=== PATIENT | female | born 1990 | race Two or more races ===

== ENCOUNTER 2024-07-28 11:42 | Emergency (ER) | payer MEDICAID, OTHER ==
[~2024-07-28] VITALS: Ht 162.6 cm; Wt 79.5 kg
[2024-07-28 12:27] VITALS: BP 125/67; PULSE 90; RESP 16; TEMP 97.9; O2SAT 99
--- NOTE | 2024-07-28 12:44 | ED.PDOC ---
Back pain HPI HPI Comments 33 year old presents for back pain Onset started 2 days ago while making her bed and heard a pop Pain rated as severe with ambulation Taking IBU 600 mg Denies back surgeries or red flags LMP: Jul 15 Chief Complaint: Back Pain Time Seen by MD: 12:22 Primary Care Provider: unknown Reviewed Notes: Nurses Notes, Medications, Allergies Allergies: Coded Allergies: NO KNOWN ALLERGIES (Unverified , 07/28/24) Home Meds Active Scripts Lidocaine (LIDODERM 5% TOPICAL PATCH) 1 Patch Ph, 1 PATCH TOP DAILY for 30 Days, #30 PATCH 0 Refills Prov:KALEB GARCIA DOCTOR'S ASSISTANT 07/28/24 Ibuprofen (Ibuprofen) 600 Mg Tab, 1 TAB PO TID for 10 Days, #30 TAB 0 Refills Prov:KALEB GARCIA DOCTOR'S ASSISTANT 07/28/24 Methocarbamol (Methocarbamol) 500 Mg Tab, 500 MG PO Q8HP PRN for 10 Days, #30 TAB 0 Refills Prov:KALEB GARCIA DOCTOR'S ASSISTANT 07/28/24 Nitrofurantoin Monohydrate Mac (Macrobid) 100 Mg Cap, 100 MG PO BID for 7 Days, #14 CAP 0 Refills Prov:JOSEKALEB F DOCTOR'S ASSISTANT 07/28/24 Information Source: Patient Mode of Arrival: Wheelchair All Other Systems: Reviewed and Negative (per hpi) Physical Exam General Appearance: No Apparent Distress, Normal HEENT: Normal ENT Inspection, Pharynx Normal, TMs Normal Neck: Full Range of Motion, Non-Tender, Normal, Normal Inspection Respiratory: Chest Non-Tender, Lungs Clear, No Accessory Muscle Use, No Respiratory Distress, Normal Breath Sounds Cardiovascular: No Edema, No JVD, No Murmur, No Gallop, Normal Peripheral Pulses, Regular Rate/Rhythm Breast Exam: Deferred Gastrointestinal: No Organomegaly, Non Tender, No Pulsatile Mass, Normal Bowel Sounds, Soft Genitalia: Deferred Pelvic: Deferred Rectal: Deferred Extremities: No calf tenderness, Normal capillary refill, Normal inspection, Normal range of motion, Non-tender, No pedal edema Musculoskeletal : Apperance: Normal Neurologic: Alert, 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 Was a procedure done?: No Images 1 - Localized TTP. Straight leg raise test +. No mid line tenderness. Full ROM 2 - Back Pain Differential Dx Differential Diagnosis: Musculoskeletal Pain X-Ray, Labs, Meds, VS Vital Signs Date Time Temp Pulse Resp B/P (MAP) Pulse Ox O2 Delivery O2 Flow Rate FiO2 07/28/24 12:27 97.9 90 16 125/67 (86) 99 97.9 07/28/24 12:27 90 16 99 Room Air 07/28/24 12:10 97.9 90 16 125/67 (86) 99 Lab Test 07/28/24 12:47 Range/Units Urine Color Light-yellow Yellow Urine Clarity Clear Clear Urine pH 7.0 5.0-9.0 Urine Specific [place] 1.008 1.001-1.035 Urine Protein Negative Negative Urine Ketones Negative Negative Urine Blood Negative Negative /uL Urine Nitrite Negative Negative Urine Bilirubin Negative Negative Urine Urobilinogen Normal Negative mg/dL Urine Leukocyte Esterase 2+ Negative /uL Urine RBC 2 0 - 4 /hpf Urine Microscopic WBC 27 H 0-5 /HPF Urine Squamous Epithelial Cells Few <5 /hpf Urine Bacteria Few H None Seen /hpf Urine Glucose Normal Normal mg/dL Current Medications Medications (Trade) Dose Ordered Sig/Vimal Route Start Time Stop Time Status Last Admin Acetaminophen/ Hydrocodone Bitart ([place] 5/325MG Tab) 1 tab ONCE ONCE PO 07/28/24 12:45 07/28/24 12:47 DC 07/28/24 12:52 Ketorolac Tromethamine (Toradol Injection) 30 mg ONCE ONCE IM 07/28/24 12:45 07/28/24 12:47 DC 07/28/24 12:52 Methylprednisolone Sodium Succinate (Solu Medrol) 125 mg ONCE ONCE IM 07/28/24 12:45 07/28/24 12:47 DC 07/28/24 12:51 Ceftriaxone Sodium (Rocephin) 1,000 mg ONCE ONCE IM 07/28/24 13:45 07/28/24 13:47 DC 07/28/24 13:50 X-Ray, Labs, Meds, VS Comment Signs and symptoms suggest mechanical back pain. The episode appears to be exacerbated by movements. The patient's motor strength and DTR's are currently intact. There are no signs or symptoms of cauda equina or cord compression at this time. Differential diagnoses include muscle strain versus arthralgia versus radicular/disk disease. The differential for an acute vascular, neurologic, malignant, or infectious etiologies is much less likely given her presentation. Patient able to ambulate. The patient will follow up with PMD to see if their symptoms anjum. The patient was counseled in regards to the diagnosis and management of their condition and verbalized understanding of this. The patient understands to go to the ED or seek immediate medical attention if the symptoms worsen or return. History and lab findings also consistent with UTI Vital signs stable patient stable Patient tolerating p.o. fluids Encouraged parents to increase water intake Practice good personal hygiene. Always wipe from front to back Drink plenty of fluids to help flush bacteria out of the urinary tract Empty bladder completely as soon as you feel the urge Empty bladder after intercourse Prescribed p.o. antibiotics for presentation of symptoms Complete course of antibiotic therapy even if symptoms improve or resolve. There should be no leftover antibiotics as this can lead to antibiotic resistant bacteria and even worse infection. Parents verbalized understanding. Potential side effects discussed with patient including abdominal pain, nausea, diarrhea. Recommended probiotics and return precautions given Persistent diarrhea Dehydration Blood in stool Ill-appearing On reevaluation, patient had symptomatic improvement. Patient is stable for discharge at this time. External notes reviewed. Test results and diagnostic imaging interpreted. All diagnostic findings, discharge care, education and instructions provided Follow-up with PCP in 2 to 3 days Patient verbalized understanding and agreed to treatment plan Vital signs stable, afebrile, no acute distress noted Patient ambulatory with strong steady gait Advised to return precautions for any new or worsening symptoms, return to ER immediately for re-evaluation Patient is aware that the purpose of this visit was for an acute medical emergency requiring emergent stabilization. Chronic conditions, including malignancies have not been ruled out. Patient is instructed to follow up with PCP as directed and discharge instructions for continued care and workup. If unable to arrange follow-up, patient is to return to the emergency department for reassessment. Patient (parent or legal guardian if applicable) was given verbal and written discharge instructions and acknowledges understanding. Time of 1ST Reevaluation: 13:30 Reevaluation 1ST: Improved Patient Education/Counseling: Diagnosis, Treatment Family Education/Counseling: Diagnosis, Treatment Departure 1 Departure Time of Disposition: 13:52 Impression: Primary Impression: Lumbar radiculopathy Additional Impression: UTI (urinary tract infection) Qualified Codes: N30.00 - Acute cystitis without hematuria Disposition: HOME / SELF CARE / HOMELESS Condition: Stable e-Prescriptions Lidocaine (LIDODERM 5% TOPICAL PATCH) 1 Patch Ph 1 PATCH TOP DAILY for 30 Days, #30 PATCH 0 Refills Prov: KALEB GARCIA NP 07/28/24 Ibuprofen (Ibuprofen) 600 Mg Tab 1 TAB PO TID for 10 Days, #30 TAB 0 Refills Prov: KALEB GARCIA NP 07/28/24 Methocarbamol (Methocarbamol) 500 Mg Tab 500 MG PO Q8HP PRN for 10 Days, #30 TAB 0 Refills Prov: KALEB GARCIA NP 07/28/24 Nitrofurantoin Monohydrate Mac (Macrobid) 100 Mg Cap 100 MG PO BID for 7 Days, #14 CAP 0 Refills Prov: KALEB GARCIA NP 07/28/24 Critical Care Note Critical Care Time?: No Stability Stability form required: No Heart Score Heart Score: Heart Score Response (Comments) Value History N/A 0 EKG N/A 0 Age N/A 0 Risk Factors N/A 0 Troponin N/A 0 Total 0 KALEB GARCIA NP Jul 28, 2024 12:44
[2024-07-28] MEDS: methylPREDNISolone SOD SUCC 125 MG/2 ML VL IM ONE (12:51)
[2024-07-28] MEDS: KETOROLAC TROMETH 30 MG/ML 1ML VIAL IM ONE (12:52)
[2024-07-28] MEDS: HYDROcodone-ACET 5/325MG TAB PO ONE (12:52)
[2024-07-28 13:43] LABS: Urine Bacteria FEW /hpf (None Seen); Urine Blood Negative /uL (Negative); Urine Clarity Clear (Clear); Urine Color Light-Yellow (Yellow); Urine Protein, UAD Negative (Negative); Urine Specific Gravity 1.008 (1.001-1.035); Urine Squamous Epithelial Cell FEW /hpf (<5); Urine Urobilinogen Normal (Negative); Urine WBC 27 /HPF (0-5)
[2024-07-28] MEDS: cefTRIAXone SOD 1,000 MG VL IM ONE (13:50)
[2024-07-28] MEDS ORDERED: NITR-87 PO (13:54)
[2024-07-28] MEDS ORDERED: LIDO5DIS21 TOP (13:54)
[2024-07-28] MEDS ORDERED: IBUP-1454 PO (13:54)
[2024-07-28] MEDS ORDERED: METH-1181 PO (13:54)
== END 2024-07-28 13:58 | disposition home or self-care (01) ==
LOC: ER 11:42
DX: M54.16 Radiculopathy, lumbar region (principal); N39.0 Urinary tract infection, site not specified; Z79.1 Long term (current) use of non-steroidal anti-inflammatories (NSAID); Z79.899 Other long term (current) drug therapy
CPT/HCPCS: 81001; 96372; 99284; J0696; J1885; J2919

== ENCOUNTER → 2024-09-10 | Outpatient (CLI) | payer MEDICAID ==
[~2024-09-10] MED LIST: IBUP-1454 PO; LIDO5DIS21 TOP; METH-1181 PO; NITR-87 PO
[2024-09-10 09:45] LABS: Urine Bacteria None Seen /hpf (None Seen)
[2024-09-10 09:51] LABS: Basophils # (auto) 0 10 ^3/uL (0-0.2); Basophils % (auto) 0.4 % (0.0-2.0); Eosinophils # (auto) 0.1 10 ^3/uL (0-0.8); Eosinophils % (auto) 1.7 % (0.0-7.0); Hematocrit 39.8 % (36.0-46.0); Lymphocytes # (auto) 1.5 10 ^3/uL (0.4-5.4); Lymphocytes % (auto) 28.8 % (10.0-50.0); Mean Corpuscular Hgb Conc. 32.6 g/dL (32.0-36.0); Mean Corpuscular Volume 79.7 fL (80.0-100.0); Monocytes # (auto) 0.4 10 ^3/uL (0-1.3); Monocytes % (auto) 7.2 % (0.0-12.0); Neutrophils # (auto) 3.2 10 ^3/uL (1.6-8.6); Neutrophils % (auto) 61.9 % (37.0-80.0); Nucleated Red Blood Cells % 0.1 %; Platelet Count (auto) 269 10^3/uL (140-450); Red Blood Cells 4.99 10^6/uL (4.0-5.20); Red Cell Distribution Width 14.9 % (11.8-14.3); White Blood Cell 5.1 10^3/uL (4.4-10.8)
[2024-09-10 09:57] LABS: Urine Blood Negative /uL (Negative); Urine Clarity Turbid (Clear); Urine Color Yellow (Yellow); Urine Mucus FEW (None Seen); Urine Protein, UAD Negative (Negative); Urine Specific Gravity 1.025 (1.001-1.035); Urine Squamous Epithelial Cell FEW /hpf (<5); Urine Urobilinogen Normal (Negative); Urine WBC < 1 /HPF (0-5); Urine pH 5.5 (5.0-9.0)
[2024-09-10 10:25] LABS: Alanine Aminotransferase 20 U/L (7-40); Alkaline Phosphatase 65 U/L (46-116); Anion Gap 8 (5-15); Aspartate Aminotransferase 14 U/L (13-40); BUN/Creatinine Ratio 19.4 (10.0-20.0); Blood Urea Nitrogen 13 mg/dL (9-23); Calcium 10.1 mg/dL (8.7-10.4); Carbon Dioxide 27 mmol/L (20-31); Chloride 103 mmol/L (98-107); Cholesterol 184 mg/dL (< 200); Glucose 99 mg/dL (74-106); HDL Cholesterol 53 mg/dL (40-59); Potassium 4.7 mmol/L (3.5-5.1); Sodium 138 mmol/L (136-145); Total Protein 7.6 g/dL (5.7-8.2); Triglycerides 67 mg/dL (< 150)
[2024-09-10 10:28] LABS: Albumin 5.1 g/dL (3.2-4.8); LDL Cholesterol 121 mg/dL (< 100)
== END | disposition home or self-care (01) ==
LOC: LAB 09:31
PROVIDERS: ATTEND Internal Medicine
DX: Z00.00 Encounter for general adult medical examination without abnormal findings (principal); Z79.899 Other long term (current) drug therapy
CPT/HCPCS: 36415; 80053; 80061; 81001; 82306; 82607; 83036; 84443; 85025

== ENCOUNTER 2024-11-20 10:58 | Outpatient (CLI) | payer MEDICAID | END 2024-11-20 17:00 | disposition home or self-care (01) | LOC: LAB 10:58 | PROVIDERS: ATTEND Internal Medicine | DX: Z00.00 Encounter for general adult medical examination without abnormal findings (principal) | CPT/HCPCS: 36415; 84439; 84443; 86780 ==

== ENCOUNTER 2025-05-03 04:28 | Inpatient (IN) | payer MEDICAID ==
[~2025-05-03] VITALS: Ht 162.6 cm; Wt 87.5 kg
--- NOTE | 2025-05-03 05:21 | ED.PDOC ---
GI ASSESSMENT HPI Comments 34-year-old female who came to ER for abdominal pain. Patient states for the past 4 hours she has been experiencing epigastric abdominal pain, radiating to the back. Patient states she had similar pain before. States pain usually occurs after meals. Patient denies any possibility of . Chief Complaint: Abdominal Pain Time Seen by MD: 05:21 Primary Care Provider: unknown Reviewed Notes: Nurses Notes Allergies: Coded Allergies: NO KNOWN ALLERGIES (Unverified , 07/28/24) Home Meds Active Scripts Lidocaine (LIDODERM 5% TOPICAL PATCH) 1 Patch Ph, 1 PATCH TOP DAILY for 30 Days, #30 PATCH 0 Refills Prov:JOSEKALEB F INVESTMENT ADVISOR 07/28/24 Ibuprofen (Ibuprofen) 600 Mg Tab, 1 TAB PO TID for 10 Days, #30 TAB 0 Refills Prov:KALEB GARCIA INVESTMENT ADVISOR 07/28/24 Methocarbamol (Methocarbamol) 500 Mg Tab, 500 MG PO Q8HP PRN for 10 Days, #30 TAB 0 Refills Prov:KALEB GARCIA INVESTMENT ADVISOR 07/28/24 Nitrofurantoin Monohydrate Mac (Macrobid) 100 Mg Cap, 100 MG PO BID for 7 Days, #14 CAP 0 Refills Prov:CHINO GARCIAJerman Avalos INVESTMENT ADVISOR 07/28/24 Information Source: Patient Mode of Arrival: Ambulatory Past Medical History PAST MEDICAL HISTORY: Denies Surgical History: , Tubal Ligation DEEP SEA DIVER History: Denies all DEEP SEA DIVER Hx Family History Family History: Reviewed,noncontributory to illness Social History Smoker: Non-Smoker Alcohol: Denies ETOH Use Drugs: Denies Drug Use Lives In: Home Constitutional: denies: chills, diaphoresis, fatigue, fever, malaise, sweats, weakness, others EENTM: denies: blurred vision, double vision, ear bleeding, ear discharge, ear drainage, ear pain, ear ringing, eye pain, eye redness, hearing loss, mouth pain, mouth swelling, nasal discharge, nose bleeding, nose congestion, nose pain, photophobia, tearing, throat pain, throat swelling, voice changes, others Respiratory: denies: cough, hemoptysis, orthopnea, SOB at rest, shortness of breath, SOB with excertion, stridor, wheezing, others Cardiovascular: denies: chest pain, dizzy spells, diaphoresis, Dyspnea on exertion, edema, irregular heart beat, left arm pain, lightheadedness, palpitations, PND, syncope, others Gastrointestinal: reports: abdominal pain; denies: abdomen distended, blood streaked bowels, constipated, diarrhea, dysphagia, difficulty swallowing, hematemesis, melena, nausea, poor appetite, poor fluid intake, rectal bleeding, rectal pain, vomiting, others Genitourinary: denies: abnormal vagina bleeding, burning, dyspareunia, dysuria, flank pain, frequency, hematuria, incontinence, pain, , vagina discharge, urgency, others Neurological: denies: dizziness, fainting, headache, left sided numbness, left sided weakness, numbness, paresthesia, pre-existing deficit, right sided numbness, right sided weakness, seizure, speech problems, tingling, tremors, weakness, others Musculoskeletal: reports: back pain; denies: gout, joint pain, joint swelling, muscle pain, muscle stiffness, neck pain, others Integumetry: denies: bruises, change in color, change in hair/nails, dryness, laceration, lesions, lumps, rash, wounds, others Allergic/Immunocompromised: denies: Difficulty Healing, Frequent Infections, Hives, Itching, others Hematologic/Lymphatic: denies: anemia, blood clots, easy bleeding, easy bruising, swollen glands, others Endocrine: denies: excessive hunger, excessive sweating, excessive thirst, excessive urination, flushing, intolerance to cold, intolerance to heat, unexplained weight gain, unexplained weight loss, others Psychiatric: denies: anxiety, bipolar disorder, depression, hopeless, panic disorder, schizophrenia, sleepless, suicidal, others Physical Exam General Appearance: No Apparent Distress, Normal HEENT: Normal ENT Inspection, Pharynx Normal, TMs Normal Neck: Full Range of Motion, Non-Tender, Normal, Normal Inspection Respiratory: Chest Non-Tender, Lungs Clear, No Accessory Muscle Use, No Respiratory Distress, Normal Breath Sounds Cardiovascular: No Edema, No JVD, No Murmur, No Gallop, Normal Peripheral Pulses, Regular Rate/Rhythm Breast Exam: Deferred Gastrointestinal: No Organomegaly, No Pulsatile Mass, Normal Bowel Sounds, RUQ, Soft, Tenderness Genitalia: Deferred Pelvic: Deferred Rectal: Deferred Extremities: No calf tenderness, Normal capillary refill, Normal inspection, Normal range of motion, Non-tender, No pedal edema Musculoskeletal : Apperance: Normal Neurologic: Alert, 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 Was a procedure done?: No GI differential Dx Differential Diagnosis: Cholecystitis, Constipation, Diverticular disease, Gastritis/PUD, Gastroenteritis, Pancreatitis, UTI, X-Ray, Labs, Meds, VS Vital Signs Date Time Temp Pulse Resp B/P (MAP) Pulse Ox O2 Delivery O2 Flow Rate FiO2 05/03/25 04:38 98.2 93 18 135/89 98 98.2 Time of 1ST Reevaluation: 05:19 Reevaluation 1ST: Unchanged Patient Education/Counseling: Diagnosis, Treatment, Prognosis, Need For Follow Up Family Education/Counseling: No Family Present Comments i will sign out to Dr Smith at shift change in 25 mins SEPSIS Sepsis Screen Date sepsis recognized/suspect: May 03, 2025 Time Sepsis recognized/suspect: 044 Recent Procedure: No On Antibiotic Therapy: No Respiratory Rate >20: No Heart Rate >90: Yes Temp<36 C (96.8 F) or >38.3 C: No SBP <90 or MAP <65 mmHG: No New Acute Mental Status Change: No Is the patient on CPAP, BIPAP,: No Physician Orders Complete Blood Count (05/03/25 05:20) Basic Metabolic Panel (05/03/25 05:20) Hepatic Panel (05/03/25 05:20) Lipase (05/03/25 05:20) Beta Hcg, Quantitative (05/03/25 05:20) Urinalysis (05/03/25 05:20) Gallbladder (05/03/25 05:20) Vital Signs Date Time Temp Pulse Resp B/P (MAP) Pulse Ox O2 Delivery O2 Flow Rate FiO2 05/03/25 04:38 98.2 93 18 135/89 98 98.2 Departure 1 Departure Time of Disposition: 05:35 Impression: Primary Impression: Biliary colic Disposition: 30 STILL A PATIENT Condition: Stable Critical Care Note Critical Care Time?: No Stability Stability form required: No Heart Score Heart Score: Heart Score Response (Comments) Value History N/A 0 EKG N/A 0 Age N/A 0 Risk Factors N/A 0 Troponin N/A 0 Total 0 I personally scribed for GIGI MARR MD ([email or web address]) on 05/03/25 at 05:21. Electronically submitted by Nicholas Bowling ([email or web address]). GIGI MARR MD May 03, 2025 05:21
[2025-05-03] MEDS: HYDROcodone-ACET 5/325MG TAB PO ONE ×2 (05:54→11:14)
[2025-05-03 06:25] LABS: Mean Corpuscular Volume 79.8 fL (80.0-100.0); Nucleated Red Blood Cells % 0.1 %
[2025-05-03 06:26] LABS: Urine Protein, UAD Negative (Negative)
[2025-05-03 06:28] LABS: Hematocrit 41.4 % (36.0-46.0); Hemoglobin 13.9 g/dL (12.2-16.2); Mean Corpuscular Hemoglobin 26.8 pg (28.0-32.0)
[2025-05-03 06:29] LABS: Alanine Aminotransferase 23 U/L (7-40); Alkaline Phosphatase 68 U/L (46-116); Anion Gap 8 (5-15); BUN/Creatinine Ratio 13.7 (10.0-20.0); Bilirubin, Total 0.4 mg/dL (0.2-1.0); Blood Urea Nitrogen 10 mg/dL (9-23); Calcium 10.0 mg/dL (8.7-10.4); Carbon Dioxide 27 mmol/L (20-31); Chloride 105 mmol/L (98-107); Potassium 4.7 mmol/L (3.5-5.1); Sodium 140 mmol/L (136-145); Total Protein 7.7 g/dL (5.7-8.2)
[2025-05-03 06:44] LABS: Albumin 4.9 g/dL (3.2-4.8); Bilirubin, Direct < 0.1 mg/dL (<0.3); Glucose 113 mg/dL (74-106)
[2025-05-03 06:58] LABS: Lipase 46 U/L (12-53)
[2025-05-03 08:43] VITALS: PULSE 60; RESP 18; O2SAT 100
--- NOTE | 2025-05-03 09:01 | DVH ---
EXAM: US GALLBLADDER INDICATION: gs TECHNIQUE: Multiple real-time sonographic images were obtained of the right upper quadrant. COMPARISON: None FINDINGS: The liver demonstrates increased echotexture without focal mass lesions. The liver measures 14.1 cm. There is hepatopedal color doppler flow in the main portal vein. There is no intrahepatic biliary ductal dilatation. There is a gallstone. The gallbladder wall measures 0.3 cm. Negative sonographic carter's sign. The common bile duct is dilated measuring 0.7 cm. No filling defect within the common bile duct. The right kidney measures 10.4 cm. The right kidney is normal in contour, size, and shape. The echogenicity is normal. There is no hydronephrosis. The pancreas is not well visualized due to overlying bowel gas. Visualized portions of the aorta and inferior vena cava are unremarkable. No evidence of ascites. IMPRESSION: 1. Cholelithiasis. No findings to suggest acute cholecystitis. 2. Dilated common bile duct measuring 0.7 cm. No filling defect. MRCP may be obtained for further evaluation. 3. Hepatic steatosis.
--- NOTE | 2025-05-03 09:13 | ED.PDOC ---
Departure 1 Departure Time of Disposition: 09:12 (Patient presented with abdominal pain that was concerning for possible appendicits, gastritis, cholecystitis, colitis, gastroenteritis, sbo, or orther possible surgical emergency. Data: 1. I ordered and reviewed the result of at least 3 labs including a CBC, BMP, and Urinalysis. 2. I independently interpreted the following tests: Ultrasound is concerning for cholelithiasis .Risk:This patient has a high risk of morbidity due to further diagnostic testing or treatment and may suffer from an acute abdominal process disorder. Workup reveals cholelithiasis and intractable abdominal pain and patient should be admitted for further workup. and possible expert consultation. ) Impression: Primary Impression: Biliary colic Disposition: ADMITTED INPATIENT Admit to: Med Surg Condition: Guarded ROD HUDDLESTON MD May 03, 2025 09:12
[2025-05-03] MEDS: ONDANSETRON HCL 4 MG/2 ML VIAL IV ONE (11:07)
[2025-05-03] MEDS ORDERED: ACETAMINOPHEN 325 MG TAB PO PRN (12:15)
[2025-05-03] MEDS ORDERED: MORPHINE SULFATE INJ 2 MG/ml SYRG IV PRN (12:15)
--- NOTE | 2025-05-03 13:08 | DVHHP2 ---
History of Present Illness History of Present Illness 33-year-old female with past medical history of recurrent UTIs and vitamin D deficiency presenting with epigastric and right upper quadrant abdominal pain, worse after meals, that acutely intensified around 2 a.m. today. She reports associated nausea but denies vomiting, fevers, chills, diarrhea, chest pain, or urinary complaints. She states she has been experiencing similar intermittent episodes for a while. In the ED, vital signs were stable. Labs including CBC, CMP, lipase, test, urinalysis, and toxicology screen were normal. RUQ ultrasound showed cholelithiasis, a CBD measuring 7 mm, and hepatic steatosis. MRCP was ordered to further evaluate for possible obstruction or choledocholithiasis. She was started on IV fluids and pain control. No antibiotics were initiated as there is no evidence of infection. Findings and plan were discussed with the patient. Past Medical History Recurrent UTIs, vitamin D deficiency. Past Surgical History , tubal ligation. Allergies NKDA. Home Medications Vitamin D supplement. Social History No tobacco, no alcohol, no recreational drugs. Lives at home. ROS Negative except as noted in HPI. Review of Systems Allergies: Coded Allergies: NO KNOWN ALLERGIES (Unverified , 07/28/24) Medications Current Medications Medications Dose Ordered Sig/Vimal Route Start Time Stop Time Status Last Admin Dose Admin Sodium Chloride 1,000 ml @ 60 mls/hr [id number] IV 05/03/25 12:15 Acetaminophen 650 mg Q6HP PRN PO 05/03/25 12:15 Acetaminophen/ Hydrocodone Bitart 1 tab Q4HP PRN PO 05/03/25 12:15 Morphine Sulfate 2 mg Q4HPRN PRN IV 05/03/25 12:15 Exam Vital Signs Vital Signs Date Time Temp Pulse Resp B/P (MAP) Pulse Ox O2 Delivery O2 Flow Rate FiO2 05/03/25 12:37 98.1 65 18 110/73 (85) 100 98.1 05/03/25 08:43 Room Air* 0 21 Exam General: Comfortable, no distress. HEENT: MMM. CV: RRR, no murmurs. Resp: CTAB, no wheezes or crackles. Abdomen: Soft, RUQ tenderness, William negative, no rebound or guarding. Extremities: No edema. Neuro: Alert, oriented, nonfocal. Labs/Xrays Labs Test 05/03/25 06:03 05/03/25 05:39 05/03/25 05:35 Range/Units Urine Color Colorless Yellow Urine Clarity Clear Clear Urine pH 5.5 5.0-9.0 Urine Specific [place] 1.009 1.001-1.035 Urine Protein Negative Negative Urine Ketones Negative Negative Urine Blood Negative Negative /uL Urine Nitrite Negative Negative Urine Bilirubin Negative Negative Urine Urobilinogen Normal Negative mg/dL Urine Leukocyte Esterase Negative Negative /uL Urine RBC 1 0 - 4 /hpf Urine Microscopic WBC 1 0-5 /HPF Urine Squamous Epithelial Cells Few <5 /hpf Urine Bacteria Mod H None Seen /hpf Urine Glucose Normal Normal mg/dL Sodium Level 140 136-145 mmol/L Potassium Level 4.7 3.5-5.1 mmol/L Chloride Level 105 98-107 mmol/L Carbon Dioxide Level 27 20-31 mmol/L Anion Gap 8 5-15 Blood Urea Nitrogen 10 9-23 mg/dL Creatinine 0.73 0.550-1.02 mg/dL Glomerular Filtration Rate Calc 111 >90 mL/min BUN/Creatinine Ratio 13.7 10.0-20.0 Serum Glucose 113 H 74-106 mg/dL Calcium Level 10.0 8.7-10.4 mg/dL Total Bilirubin 0.4 0.2-1.0 mg/dL Direct Bilirubin < 0.1 <0.3 mg/dL Aspartate Amino Transferase (AST) 16 13-40 U/L Alanine Aminotransferase (ALT) 23 7-40 U/L Alkaline Phosphatase 68 46-116 U/L Total Protein 7.7 5.7-8.2 g/dL Albumin 4.9 H 3.2-4.8 g/dL Lipase 46 12-53 U/L Beta HCG, Quantitative 0.9 L 1.5-4.2 mIU/mL White Blood Count 7.6 4.4-10.8 10^3/uL Red Blood Count 5.19 4.0-5.20 10^6/uL Hemoglobin 13.9 12.2-16.2 g/dL Hematocrit 41.4 36.0-46.0 % Mean Corpuscular Volume 79.8 L 80.0-100.0 fL Mean Corpuscular Hemoglobin 26.8 L 28.0-32.0 pg Mean Corpuscular Hemoglobin Concent 33.6 32.0-36.0 g/dL Red Cell Distribution Width 14.3 11.8-14.3 % Platelet Count 275 140-450 10^3/uL Mean Platelet Volume 7.7 6.9-10.8 fL Neutrophils (%) (Auto) 70.1 37.0-80.0 % Lymphocytes (%) (Auto) 22.4 10.0-50.0 % Monocytes (%) (Auto) 5.9 0.0-12.0 % Eosinophils (%) (Auto) 1.2 0.0-7.0 % Basophils (%) (Auto) 0.4 0.0-2.0 % Neutrophils # (Auto) 5.3 1.6-8.6 10 ^3/uL Lymphocytes # (Auto) 1.7 0.4-5.4 10 ^3/uL Monocytes # (Auto) 0.4 0-1.3 10 ^3/uL Eosinophils # (Auto) 0.1 0-0.8 10 ^3/uL Basophils # (Auto) 0 0-0.2 10 ^3/uL Nucleated Red Blood Cells 0.1 % SEPSIS Sepsis Screen Date sepsis recognized/suspect: May 03, 2025 Time Sepsis recognized/suspect: 08 Recent Procedure: No On Antibiotic Therapy: No Respiratory Rate >20: No Heart Rate >90: No Temp<36 C (96.8 F) or >38.3 C: No SBP <90 or MAP <65 mmHG: No New Acute Mental Status Change: No Is the patient on CPAP, BIPAP,: No Physician Orders Gallbladder (05/03/25 05:20) Admit (05/03/25 12:04) Code Status (05/03/25 12:04) Vital Signs .PER UNIT PROTOCOL (05/03/25 12:04) Review Orders With Adm. (05/03/25 12:04) Npo (Nothing By Mouth) Diet (05/03/25 Lunch) Sodium Chloride 0.9% (05/03/25 12:15) Acetaminophen Tablet (Tylenol Tablet) (05/03/25 12:15) Notify Md Of Changes From Base (05/03/25 12:04) Advance Directive (05/03/25 12:04) Patient Condition (05/03/25 12:04) Allergies (05/03/25 12:04) Hydrocodone-Acet 5/325mg Tab ([place] 5/32 (05/03/25 12:15) Drug Screen (05/03/25 12:04) Hemoglobin A1c (05/03/25 12:04) Morphine Sulfate Injection (05/03/25 12:15) Oxygen By Nasal Cannula (05/03/25 12:04) Stat Ekg For Chest Pain (05/03/25 12:04) Notify Md Of Changes From Base (05/03/25 12:04) Flue Cleaner For 24 Hours (05/03/25 12:04) Emergency Dysrhythmia Protocol (05/03/25 12:04) Rhythm Strips Once Every Shift (05/03/25 12:04) Mrcp Mri (05/03/25 12:04) Vital Signs Date Time Temp Pulse Resp B/P (MAP) Pulse Ox O2 Delivery O2 Flow Rate FiO2 05/03/25 12:37 98.1 65 18 110/73 (85) 100 98.1 05/03/25 10:00 71 18 119/69 (86) 97 05/03/25 08:43 60 18 100 Room Air* 0 21 05/03/25 08:43 98.4 60 18 109/77 (88) 99 98.4 05/03/25 05:48 98.3 72 15 110/73 (85) 98 98.3 Laboratory Tests Test 05/03/25 05:35 White Blood Count 7.6 10^3/uL (4.4-10.8) Medications Medications Dose Ordered Sig/Vimal Route Start Time Stop Time Status Last Admin Dose Admin Acetaminophen/ Hydrocodone Bitart 1 tab ONCE ONCE PO 05/03/25 05:30 05/03/25 05:31 DC 05/03/25 05:54 1 TAB Acetaminophen/ Hydrocodone Bitart 1 tab ONCE ONCE PO 05/03/25 11:15 05/03/25 11:16 DC 05/03/25 11:14 1 TAB Ondansetron HCl 4 mg ONCE ONCE IV 05/03/25 11:00 05/03/25 11:01 DC 05/03/25 11:07 4 MG Assessment/Plan Assessment/Plan #Acute intractable abdominal pain #Biliary colic # Cholelithiasis Patient with biliary colic-type pain and RUQ tenderness, ultrasound showing gallstones without evidence of acute cholecystitis and no leukocytosis or fever. MRCP is appropriate to evaluate for choledocholithiasis given CBD 7 mm. Continue IV fluids and analgesia. If MRCP shows obstruction, patient will need transfer to [facility] and consult surgery and GI; if negative, surgical evaluation for elective cholecystectomy is recommended. # Hepatic steatosis Incidentally noted on imaging. No LFT abnormalities. Home Energy Consultant Supervisor on diet modifications and outpatient follow-up for lifestyle optimization and possible repeat monitoring. # Vitamin D deficiency levels ordered Case discussed with Dr Finley Full code No DVT prophylaxis in case of procedures Plan discussed with: Patient, Other My Orders Orders - DELORIS CHILDRESS RESIDENT Procedure Category Date Status Time Admit ADMIT 05/03/25 Transmitted 12:04 Code Status CODE 05/03/25 Transmitted 12:04 Vital Signs [facility] 05/03/25 In Process 12:04 Review Orders With [facility] 05/03/25 In Process Adm. 12:04 Npo (Nothing By DIET 05/03/25 Transmitted Mouth) Diet Lunch Sodium Chloride 0.9% PHA 05/03/25 In Process 12:15 Acetaminophen Tablet PHA 05/03/25 In Process (Tylenol Tablet) 12:15 Notify Of Changes [facility] 05/03/25 In Process From Base 12:04 Advance Directive [facility] 05/03/25 In Process 12:04 Patient Condition ORDERS 05/03/25 Transmitted 12:04 Allergies [facility] 05/03/25 In Process 12:04 Hydrocodone-Acet PHA 05/03/25 In Process 5/325mg Tab ([place] 12:15 Drug Screen LAB 05/03/25 In Process 12:04 Hemoglobin A1c LAB 05/03/25 In Process 12:04 Morphine Sulfate PHA 05/03/25 In Process Injection 12:15 Oxygen By Nasal RT 05/03/25 Transmitted Cannula 12:04 Stat Ekg For Chest [facility] 05/03/25 In Process Pain 12:04 Notify Of Changes [facility] 05/03/25 In Process From Base 12:04 Flue Cleaner For [facility] 05/03/25 In Process 24 Hours 12:04 Emergency Dysrhythmia [facility] 05/03/25 In Process Protocol 12:04 Rhythm Strips Once [facility] 05/03/25 In Process Every Shift 12:04 Mrcp Mri MRI 05/03/25 Logged 12:04 Date of Service: May 03, 2025 Billing Provider: PETRONA FINLEY MD Common Visit Codes: [id number] INP/OBS CARE (HIGH) Secondary Visit Codes: [id number] CARE PLAN 30 MINUTES DELORIS CHILDRESS RESIDENT May 03, 2025 13:08
[2025-05-03 13:12] LABS: Amphetamine Screen, Urine Neg (NEGATIVE); Barbiturate Scree,Urine Neg (NEGATIVE); Benzodiazephine Screen, Urine Neg (NEGATIVE); Cannabinoid Screen, Urine Neg (NEGATIVE); Cocaine Screen, Urine Neg (NEGATIVE); Opiate Scree,Urine Neg (NEGATIVE); Phencyclidine Screen, Urine Neg (NEGATIVE)
[2025-05-03] MEDS: SODIUM CHLORIDE 0.9% 1,000 ML IV SCH (13:14)
[2025-05-03 14:32] VITALS: BP 105/56; PULSE 57; RESP 16; TEMP 98; O2SAT 98
--- NOTE | 2025-05-03 16:40 | DVH ---
CLINICAL INFORMATION: Cholelithiasis. Mildly dilated common bile duct. TECHNIQUE: Multisequence multiplanar MRI images of the abdomen were obtained without IV contrast. Heavily T2-weighted MRCP images were obtained. 3D MRCP images were created. COMPARISON: Ultrasound dated 05/03/2025. FINDINGS: There are T2 hypointense gallstones in the gallbladder. Common bile duct measures up to 7 mm in diameter, at the upper limits of normal. No filling defect or stricture identified in the common bile duct on MRCP. No evidence of common bile duct obstruction. No pancreatic ductal dilatation visualized. There is a 0.3 cm T2 hyperintense structure at the body/tail junction of the pancreas, possibly a very small cyst. No definite communication with the pancreatic duct. Liver, spleen, adrenal glands, and kidneys appear grossly unremarkable. No abdominal aortic aneurysm. IMPRESSION: 1. Cholelithiasis. 2. Common bile duct measures at the upper limits of normal. No filling defect or stricture identified in the common bile duct on MRCP. 3. Tiny 0.3 cm T2 hyperintense lesion near the body / tail junction of the pancreas. Per ACR white paper on incidentally detected pancreatic cysts, for cysts measuring less than 1.5 cm in patient is younger than 65 years at presentation, reimage annually x5 years. If stable over initial 5 years, reimage every other year x 2 to demonstrate stability. If there is interval growth, further management will depend on the size of the cyst at the time of interval growth.
[2025-05-03 17:33] VITALS: BP 109/68; PULSE 69; RESP 16; TEMP 98.3; O2SAT 99
[2025-05-03 20:00] VITALS: PULSE 96; RESP 17; RESP 18; O2SAT 93
[2025-05-03] MEDS: PANTOPRAZOLE 40 MG/10 ML VIAL INJ IV SCH (21:15)
[2025-05-04] VITALS (8 sets, daily range): BP systolic 85–121; BP diastolic 48–71; PULSE 65–96; RESP 12–18; TEMP 97.4–98.2; O2SAT 93–98
[2025-05-04 06:40] LABS: Mean Corpuscular Hemoglobin 26.7 pg (28.0-32.0)
[2025-05-04 06:43] LABS: Hematocrit 37.0 % (36.0-46.0); Hemoglobin 12.5 g/dL (12.2-16.2); Mean Corpuscular Volume 78.9 fL (80.0-100.0); Nucleated Red Blood Cells % 0.2 %
[2025-05-04 06:55] LABS: Alanine Aminotransferase 22 U/L (7-40); Albumin 4.3 g/dL (3.2-4.8); Alkaline Phosphatase 61 U/L (46-116); Anion Gap 10 (5-15); BUN/Creatinine Ratio 14.1 (10.0-20.0); Blood Urea Nitrogen 9 mg/dL (9-23); Calcium 9.0 mg/dL (8.7-10.4); Carbon Dioxide 28 mmol/L (20-31); Chloride 102 mmol/L (98-107); Glucose 94 mg/dL (74-106); INR 1.05 (0.9-1.15); Lipase 39 U/L (12-53); Partial Thromboplastin Time 26.2 SEC (24.5-34.5); Potassium 4.2 mmol/L (3.5-5.1); Prothrombin Time 11.1 sec (9.3-11.8); Sodium 140 mmol/L (136-145); Total Protein 6.7 g/dL (5.7-8.2)
[2025-05-04 06:56] LABS: Bilirubin, Total 0.9 mg/dL (0.2-1.0)
--- NOTE | 2025-05-04 15:06 | DVHPN2 ---
Reviewed: H&P Changes from previous H/P or p: No Changes General: Per HPI Objective Vitals Vital Signs Date Time Temp Pulse Resp B/P (MAP) Pulse Ox O2 Delivery O2 Flow Rate FiO2 05/04/25 12:38 97.4 70 18 91/48 (62) 97 97.4 05/04/25 08:00 Room Air* 0 21 Intake/Output Intake and Output 05/04/25 07:00 Intake Total 800 ml Balance 800 ml Intake Oral 800 ml # Voids 3 Exam General: Comfortable, no distress. HEENT: MMM. CV: RRR, no murmurs. Resp: CTAB, no wheezes or crackles. Abdomen: Soft, RUQ tenderness, William negative, no rebound or guarding. Extremities: No edema. Neuro: Alert, oriented, nonfocal. Medications Current Medications Medications Dose Ordered Sig/Vimal Route Start Time Stop Time Status Last Admin Dose Admin Sodium Chloride 1,000 ml @ 60 mls/hr [id number] IV 05/03/25 12:15 05/04/25 04:55 60 MLS/HR Acetaminophen 650 mg Q6HP PRN PO 05/03/25 12:15 Acetaminophen/ Hydrocodone Bitart 1 tab Q4HP PRN PO 05/03/25 12:15 Morphine Sulfate 2 mg Q4HPRN PRN IV 05/03/25 12:15 Pantoprazole Sodium 40 mg BID IV 05/03/25 22:00 05/04/25 09:49 40 MG Laboratory Results Laboratory Tests 05/04/25 06:10 Chemistry Test 05/04/25 06:10 Albumin 4.3 g/dL (3.2-4.8) Calcium Level 9.0 mg/dL (8.7-10.4) Total Protein 6.7 g/dL (5.7-8.2) Coagulation Test 05/04/25 06:10 Prothrombin Time 11.1 sec (9.3-11.8) Prothrombin Time INR 1.05 (0.9-1.15) Activated Partial Thromboplast Time 26.2 SEC (24.5-34.5) Lipid panel Test 05/04/25 06:10 Lipase 39 U/L (12-53) LFT Test 05/04/25 06:10 Alanine Aminotransferase (ALT) 22 U/L (7-40) Alkaline Phosphatase 61 U/L (46-116) Aspartate Amino Transferase (AST) 19 U/L (13-40) Total Bilirubin 0.9 mg/dL (0.2-1.0) HgA1c, TSH Test 05/04/25 06:10 Thyroid Stimulating Hormone (TSH) 0.37 uIU/mL (0.55-4.78) L Urinalysis Test 05/03/25 06:03 Urine Color Colorless (Yellow) Urine Clarity Clear (Clear) Urine pH 5.5 (5.0-9.0) Urine Specific [place] 1.009 (1.001-1.035) Urine Protein Negative (Negative) Urine Ketones Negative (Negative) Urine Blood Negative /uL (Negative) Urine Nitrite Negative (Negative) Urine Bilirubin Negative (Negative) Urine Urobilinogen Normal mg/dL (Negative) Urine Leukocyte Esterase Negative /uL (Negative) Urine RBC 1 /hpf (0 - 4) Urine Microscopic WBC 1 /HPF (0-5) Urine Squamous Epithelial Cells Few /hpf (<5) Urine Bacteria Mod /hpf (None Seen) H Urine Glucose Normal mg/dL (Normal) Labs and/or images reviewed: Labs reviewed by me, Image(s) reviewed by me Assessment/Plan Assessment/Plan 33-year-old female with past medical history of recurrent UTIs and vitamin D deficiency presenting with epigastric and right upper quadrant abdominal pain, worse after meals, that acutely intensified around 2 a.m. today. She reports associated nausea but denies vomiting, fevers, chills, diarrhea, chest pain, or urinary complaints. She states she has been experiencing similar intermittent episodes for a while. In the ED, vital signs were stable. Labs including CBC, CMP, lipase, test, urinalysis, and toxicology screen were normal. RUQ ultrasound showed cholelithiasis, a CBD measuring 7 mm, and hepatic steatosis. MRCP was ordered to further evaluate for possible obstruction or choledocholithiasis. She was started on IV fluids and pain control. No antibiotics were initiated as there is no evidence of infection. Findings and plan were discussed with the patient. 05/04: MRCP with no obstruction. CMP without any obstruction. Pain is improving . Pending surgery eval. Diagnosis: #Acute intractable abdominal pain #Biliary colic # Cholelithiasis # Hepatic steatosis # Vitamin D deficiency plan: IV fluids, prn analgesia, surgery eval, Protonix 40 IV daily, Med surge Full code Plan discussed with: Patient Date of Service: May 04, 2025 Billing Provider: BUSTER FLORES MD Common Visit Codes: [id number] INP/OBS CARE(HIGH) BUSTER FLORES MD May 04, 2025 15:06
--- NOTE | 2025-05-04 15:41 | DVHINCON2 ---
Consultation - Surgical Date Seen: May 04, 2025 Referring Physician Reason for Consultation Cholecystitis History of Present Illness History of Present Illness Mrs. Waggoner is a 34-year-old female who presented with right upper quadrant abdominal pain since Sunday. The pain got worse and around 3:00 a.m. she decided to come to the emergency department. Pain is associated with bloating and nausea but no vomiting. This is her 3rd episode in 3 weeks. Denies fevers, chills, changes in urinary or stooling habits, acholic stools. Past Medical/Surgical History Past Medical/Surgical History Past medical history denies Past surgical history x2 Family and Social History Family and Social History Family history noncontributory ETOH occasional T Ob/drugs denies Allergies and medications Allergies: Coded Allergies: NO KNOWN ALLERGIES (Unverified , 07/28/24) Home Meds Active Scripts Lidocaine (LIDODERM 5% TOPICAL PATCH) 1 Patch Ph, 1 PATCH TOP DAILY for 30 Days, #30 PATCH 0 Refills Prov:KALEB GARCIA INFORMATION ASSURANCE ANALYST 07/28/24 Ibuprofen (Ibuprofen) 600 Mg Tab, 1 TAB PO TID for 10 Days, #30 TAB 0 Refills Prov:KALEB GARCIA INFORMATION ASSURANCE ANALYST 07/28/24 Methocarbamol (Methocarbamol) 500 Mg Tab, 500 MG PO Q8HP PRN for 10 Days, #30 TAB 0 Refills Prov:KALEB GARCIA INFORMATION ASSURANCE ANALYST 07/28/24 Nitrofurantoin Monohydrate Mac (Macrobid) 100 Mg Cap, 100 MG PO BID for 7 Days, #14 CAP 0 Refills Prov:KALEB GARCIA INFORMATION ASSURANCE ANALYST 07/28/24 Review of systems Review of Systems: Deferred Examination Vital signs Vital Signs Date Time Temp Pulse Resp B/P (MAP) Pulse Ox O2 Delivery O2 Flow Rate FiO2 05/04/25 12:38 97.4 70 18 91/48 (62) 97 97.4 05/04/25 08:00 Room Air* 0 21 Medications Current Medications Medications (Trade) Dose Ordered Sig/Vimal Route PRN Reason Start Time Stop Time Status Last Admin Pantoprazole Sodium (Protonix) 40 mg BID IV 05/03/25 22:00 05/04/25 15:06 DC 05/04/25 09:49 Pantoprazole Sodium (Protonix) 40 mg DAILY IV 05/05/25 10:00 Laboratory Labs Test 05/04/25 06:10 05/03/25 06:03 05/03/25 05:39 05/03/25 05:35 Range/Units White Blood Count 5.2 # 4.4-10.8 10^3/uL Red Blood Count 4.69 4.0-5.20 10^6/uL Hemoglobin 12.5 12.2-16.2 g/dL Hematocrit 37.0 # 36.0-46.0 % Mean Corpuscular Volume 78.9 L 80.0-100.0 fL Mean Corpuscular Hemoglobin 26.7 L 28.0-32.0 pg Mean Corpuscular Hemoglobin Concent 33.8 32.0-36.0 g/dL Red Cell Distribution Width 14.0 11.8-14.3 % Platelet Count 248 140-450 10^3/uL Mean Platelet Volume 7.2 6.9-10.8 fL Neutrophils (%) (Auto) 61.3 37.0-80.0 % Lymphocytes (%) (Auto) 29.0 10.0-50.0 % Monocytes (%) (Auto) 7.5 0.0-12.0 % Eosinophils (%) (Auto) 1.8 0.0-7.0 % Basophils (%) (Auto) 0.4 0.0-2.0 % Neutrophils # (Auto) 3.2 1.6-8.6 10 ^3/uL Lymphocytes # (Auto) 1.5 0.4-5.4 10 ^3/uL Monocytes # (Auto) 0.4 0-1.3 10 ^3/uL Eosinophils # (Auto) 0.1 0-0.8 10 ^3/uL Basophils # (Auto) 0 0-0.2 10 ^3/uL Nucleated Red Blood Cells 0.2 % Prothrombin Time 11.1 9.3-11.8 sec Prothrombin Time INR 1.05 0.9-1.15 Activated Partial Thromboplast Time 26.2 24.5-34.5 SEC Sodium Level 140 136-145 mmol/L Potassium Level 4.2 3.5-5.1 mmol/L Chloride Level 102 98-107 mmol/L Carbon Dioxide Level 28 20-31 mmol/L Anion Gap 10 5-15 Blood Urea Nitrogen 9 9-23 mg/dL Creatinine 0.64 0.550-1.02 mg/dL Glomerular Filtration Rate Calc 120 >90 mL/min BUN/Creatinine Ratio 14.1 10.0-20.0 Serum Glucose 94 74-106 mg/dL Calcium Level 9.0 8.7-10.4 mg/dL Total Bilirubin 0.9 0.2-1.0 mg/dL Aspartate Amino Transferase (AST) 19 13-40 U/L Alanine Aminotransferase (ALT) 22 7-40 U/L Alkaline Phosphatase 61 46-116 U/L Total Protein 6.7 5.7-8.2 g/dL Albumin 4.3 3.2-4.8 g/dL Lipase 39 12-53 U/L Vitamin B12 Level 598 211-911 pg/mL Vitamin D 25-Hydroxy 29.7 L 30.0-100 ng/mL Thyroid Stimulating Hormone (TSH) 0.37 L 0.55-4.78 uIU/mL Urine Color Colorless Yellow Urine Clarity Clear Clear Urine pH 5.5 5.0-9.0 Urine Specific [place] 1.009 1.001-1.035 Urine Protein Negative Negative Urine Ketones Negative Negative Urine Blood Negative Negative /uL Urine Nitrite Negative Negative Urine Bilirubin Negative Negative Urine Urobilinogen Normal Negative mg/dL Urine Leukocyte Esterase Negative Negative /uL Urine RBC 1 0 - 4 /hpf Urine Microscopic WBC 1 0-5 /HPF Urine Squamous Epithelial Cells Few <5 /hpf Urine Bacteria Mod H None Seen /hpf Urine Glucose Normal Normal mg/dL Urine Opiates Screen Neg NEGATIVE Urine Fentanyl Screen Neg NEGATIVE Urine Barbiturates Screen Neg NEGATIVE Urine Phencyclidine Screen Neg NEGATIVE Urine Amphetamines Screen Neg NEGATIVE Urine Benzodiazepines Screen Neg NEGATIVE Urine Cocaine Screen Neg NEGATIVE Urine Cannabinoids Screen Neg NEGATIVE Direct Bilirubin < 0.1 <0.3 mg/dL Beta HCG, Quantitative 0.9 L 1.5-4.2 mIU/mL Hemoglobin A1c 5.5 <5.7 % A1C Examination: GENERAL:Normal (AAO x3), HEENT:Normal (No icterus, neck supple), LUNGS:Normal (Nonlabored breathing with symmetric expansion), ABDOMEN:Normal (Nondistended, soft, depressible, mild right upper quadrant tenderness, Pfannenstiel scar healed), SKIN:Normal (No jaundice) Problem List/Assessment/Plan Problems: (1) Symptomatic cholelithiasis Assessment and Plan Mrs. Waggoner is a 34-year-old female who presents with symptomatic cholelithi asis. Ultrasound shows a large stone at the neck of the gallbladder. Patient is currently without pain but given that this is her 3rd episode in 3 weeks I recommend excising the gallbladder during this admission. Procedure, risks, benefits, complications, and alternatives were discussed with the patient. 1. On-call to OR tomorrow for laparoscopic cholecystectomy, possible open 2. NPO at midnight 3. Pain and nausea control Plan discussed with Plan discussed with: Patient Visit Coding Surgery Date of Service if different f: May 04, 2025 Billing Provider: EULALIO SIBLEY MD Surgery Visit Codes: [id number] - INP CONSULT <110 MIN EULALIO SIBLEY MD May 04, 2025 15:41
[2025-05-05] VITALS (8 sets, daily range): BP systolic 99–126; BP diastolic 55–70; PULSE 66–99; RESP 16–20; TEMP 96.6–98.9; O2SAT 95–100
[2025-05-05 06:59] LABS: Hematocrit 37.1 % (36.0-46.0); Hemoglobin 12.5 g/dL (12.2-16.2); Mean Corpuscular Hemoglobin 26.4 pg (28.0-32.0); Mean Corpuscular Volume 78.3 fL (80.0-100.0); Nucleated Red Blood Cells % 0.1 %
[2025-05-05] MEDS ORDERED: LIDOCAINE HCL 2% TOP JELLY 5ML TOP ONE (07:01)
[2025-05-05] MEDS ORDERED: GLYCOPYRROLATE 0.2 MG/ML 1ML VIAL ONE (07:05)
[2025-05-05] MEDS ORDERED: PROPOFOL 10 MG/ML 20 ML IV ONE (07:05)
[2025-05-05] MEDS ORDERED: ROCURONIUM 10MG/ML 10ML VIAL IV ONE (07:05)
[2025-05-05] MEDS ORDERED: KETOROLAC TROMETH 30 MG/ML 1ML VIAL ONE (07:06)
[2025-05-05] MEDS ORDERED: LIDOCAINE 2% (LOCAL ANESTH.) PF 5ml SDV ONE (07:06)
[2025-05-05] MEDS ORDERED: ONDANSETRON HCL 4 MG/2 ML VIAL ONE (07:06)
[2025-05-05] MEDS ORDERED: SUGAMMADEX 200mg/2ml Vial (100MG/ML) IV ONE (07:06)
[2025-05-05] MEDS ORDERED: fentaNYL CITRATE 100 MCG/2 ML VL ONE (07:07)
[2025-05-05] MEDS ORDERED: KETAMINE 50mg/ML 1ml syringe ONE (07:07)
[2025-05-05 07:18] LABS: Alanine Aminotransferase 20 U/L (7-40); Albumin 4.4 g/dL (3.2-4.8); Alkaline Phosphatase 63 U/L (46-116); Anion Gap 7 (5-15); BUN/Creatinine Ratio 11.9 (10.0-20.0); Bilirubin, Direct 0.2 mg/dL (<0.3); Bilirubin, Total 0.9 mg/dL (0.2-1.0); Blood Urea Nitrogen 8 mg/dL (9-23); Calcium 9.1 mg/dL (8.7-10.4); Carbon Dioxide 28 mmol/L (20-31); Chloride 105 mmol/L (98-107); Glucose 90 mg/dL (74-106); Potassium 3.8 mmol/L (3.5-5.1); Sodium 140 mmol/L (136-145); Total Protein 7.0 g/dL (5.7-8.2)
[2025-05-05] MEDS: CELECOXIB 100 MG CAP PO ONE (07:30)
[2025-05-05] MEDS: GABAPENTIN 300 MG CAP PO ONE (07:30)
[2025-05-05] MEDS: ACETAMINOPHEN IV 1000 MG/100ML (10MG/ML) IV ONE (07:30)
[2025-05-05] MEDS ORDERED: ESMOLOL HCL 10 ML IV ONE (08:10)
[2025-05-05] MEDS: BUPIVACAINE 0.25% INJ 50ML VIAL ONE (08:55)
--- NOTE | 2025-05-05 09:12 | DVHOP2 ---
Operative Report - 2 Report Details Date: 05/05/25 Preop Diagnosis: Symptomatic cholelithiasis Postop Diagnosis: Same Surgeon: Jony Rivera MD Anesthesiologist: Ruddy Doherty CRNA Anesthesia: General Consent: The patient was informed of the risks and benefits of the procedure. These include but are not limited to complications of anesthesia, postoperative infection, incomplete relief of symptoms, recurrence of symptoms, damage to blo od vessels, nerves and tendons, deep venous thrombosis, pulmonary embolism and possible need for repeat surgery in the future. Complications: None Estimated Blood Loss: 5 mL Findings: Normal-appearing gallbladder Indications for Surgery: Symptomatic cholelithiasis causing recurrent weekly episodes. Large stone seen at neck of the gallbladder on ultrasound. Name of Procedure Performed Laparoscopic cholecystectomy Procedure Details Procedure Details: Upon arriving to the operating room the patient was transferred to the operating table and placed in the supine position with arms extended. General endotracheal anesthesia was induced. Time-out was observed. Patient was prepped and draped in the standard sterile surgical fashion with chlorhexidine. I then proceeded to make an infraumbilical curvilinear incision and carried the dissection down to fascia. Once at the fascia level I grasped the umbilical stalk with a Rodolfo clamp and walked it down to its base. Once at the base of the umbilical stalk I gained entry into the peritoneal cavity utilizing Claros technique. I then placed a fascial retention stitch of 0 Vicryl in [id number] fashion. I then inserted the Claros cannula and insufflated the peritoneal cavity to 15 mmHg with toleration. I then inserted a 10 mm 30 degree laparoscope, surveyed the entry site, no injuries noted. Patient was then placed in the reverse Trendelenburg [id number] position. I then proceeded to place 3 additional 5 mm working ports at the epigastric area, right midclavicular subcostal area, and right flank area. I then directed my attention to the liver and gallbladder, gallbladder was grasped at the fundus and retracted cephalad and towards the right shoulder, gallbladder appeared normal. I then placed a 2nd grasper at the infundibulum and retracted laterally. I then incised the peritoneum on either side of the gallbladder at its base and carried it it to the liver, thus exposing Calot triangle. I then fully skeletonized Calot triangle until 2 structures were visualized, cystic duct and cystic artery. Critical view was obtained. I then proceeded to milk the cystic duct for any stones, non felt. I then placed 3 5 mm clips proximal in the cystic duct and 2 distal. I then placed 2 5 mm clips proximal on the artery and 1 distal. Both duct and artery were transected. I then proceeded to dissect the gallbladder off of the liver bed with cautery, and while doing this I encountered a lateral posterior artery branch, this branch was doubly clipped proximal and cauterized distally. I then continued dissecting the gallbladder off of the liver bed until it was completely off. The gallbladder was then placed in the Endo-Catch bag and taken out of the peritoneal cavity through the infraumbilical site, under direct vision. I then directed my attention to the gallbladder fossa, there were some areas of ooze that were cauterized, hemostasis achieved. I then proceeded to serially and copiously irrigate the fossa under the liver and over the liver since I had very minimal bile spillage from the fundus retractor site, until effluent was clear. I then surveyed again the gallbladder fossa, it was hemostatic. I then observed the previously placed clips they were all in place and hemostatic. This concluded the intraperitoneal portion of the operation. All counts were complete and correct. I then proceeded to remove the 5 mm ports under direct vision, no bleeding coming from abdominal wall. The peritoneal cavity was allowed to fully desufflate. I then closed the previously placed fascial retention stitch. All skin sites were closed with 4-0 Monocryl and Dermabond. 0.25% Marcaine was used as local anesthetic. Patient tolerated the procedure well and was transferred to PACU in stable condition. Specimen: Gallbladder and contents Condition Stable Disposition Still a Patient JONY SIBLEY MD May 05, 2025 09:12
[2025-05-05] MEDS: ACETAMINOPHEN 325 MG TAB PO SCH (09:15)
[2025-05-05] MEDS ORDERED: fentaNYL CITRATE 100 MCG/2 ML VL IV PRN (09:15)
[2025-05-05] MEDS ORDERED: FLUMAZENIL 0.1 MG/ML INJ 10ML MDV IV PRN (09:15)
[2025-05-05] MEDS ORDERED: HYDROcodone-ACET 10/325MG TAB PO PRN (09:15)
[2025-05-05] MEDS ORDERED: ONDANSETRON HCL 4 MG/2 ML VIAL IV PRN (09:15)
[2025-05-05] MEDS ORDERED: NALOXONE HCL 0.4 MG/ML VIAL IV PRN (09:15)
[2025-05-05] MEDS ORDERED: hydrALAZINE HCL 20 MG/ML VL IV PRN (09:15)
[2025-05-05] MEDS: HYDROmorphone HCL 2 MG/ML VL/or syr IV PRN (09:29)
[2025-05-05] MEDS: HYDROmorphone HCL 2 MG/ML VL/or syr ONE (09:31)
[2025-05-05] MEDS: PANTOPRAZOLE 40 MG/10 ML VIAL INJ IV SCH (09:34)
--- NOTE | 2025-05-05 10:13 | DVHPN2 ---
Reviewed: H&P Changes from previous H/P or p: No Changes General: Per HPI Objective Vitals Vital Signs Date Time Temp Pulse Resp B/P (MAP) Pulse Ox O2 Delivery O2 Flow Rate FiO2 05/05/25 09:44 61 17 108/66 (80) 98 05/05/25 09:15 Room Air 0 05/05/25 09:15 97 05/05/25 08:59 97.8 97.8 Intake/Output Intake and Output 05/05/25 07:00 Intake Total 2229 ml Output Total 1300 ml Balance 929 ml Intake Oral 2129 ml IV Total 100 ml Output Urine Total 1300 ml # Voids 4 Exam General: Comfortable, no distress. HEENT: MMM. CV: RRR, no murmurs. Resp: CTAB, no wheezes or crackles. Abdomen: Soft, RUQ tenderness, William negative, no rebound or guarding. Extremities: No edema. Neuro: Alert, oriented, nonfocal. Medications Current Medications Medications Dose Ordered Sig/Vimal Route Start Time Stop Time Status Last Admin Dose Admin Sodium Chloride 1,000 ml @ 60 mls/hr [id number] IV 05/03/25 12:15 05/04/25 22:02 60 MLS/HR Acetaminophen/ Hydrocodone Bitart 1 tab Q4HP PRN PO 05/03/25 12:15 Morphine Sulfate 2 mg Q4HPRN PRN IV 05/03/25 12:15 Pantoprazole Sodium 40 mg DAILY IV 05/05/25 10:00 05/05/25 09:34 40 MG Acetaminophen 650 mg Q6HR PO 05/05/25 09:15 Acetaminophen/ Hydrocodone Bitart 1 tab Q4HP PRN PO 05/05/25 09:15 Polyethylene Glycol 17 gm DAILY PO 05/05/25 10:00 Oxycodone HCl 10 mg ONCE PRN PO 05/05/25 09:15 05/05/25 09:53 10 MG Laboratory Results Laboratory Tests 05/05/25 05:48 Chemistry Test 05/05/25 05:48 Albumin 4.4 g/dL (3.2-4.8) Calcium Level 9.1 mg/dL (8.7-10.4) Total Protein 7.0 g/dL (5.7-8.2) LFT Test 05/05/25 05:48 Alanine Aminotransferase (ALT) 20 U/L (7-40) Alkaline Phosphatase 63 U/L (46-116) Aspartate Amino Transferase (AST) 16 U/L (13-40) Direct Bilirubin 0.2 mg/dL (<0.3) Total Bilirubin 0.9 mg/dL (0.2-1.0) Urinalysis Test 05/03/25 06:03 Urine Color Colorless (Yellow) Urine Clarity Clear (Clear) Urine pH 5.5 (5.0-9.0) Urine Specific [place] 1.009 (1.001-1.035) Urine Protein Negative (Negative) Urine Ketones Negative (Negative) Urine Blood Negative /uL (Negative) Urine Nitrite Negative (Negative) Urine Bilirubin Negative (Negative) Urine Urobilinogen Normal mg/dL (Negative) Urine Leukocyte Esterase Negative /uL (Negative) Urine RBC 1 /hpf (0 - 4) Urine Microscopic WBC 1 /HPF (0-5) Urine Squamous Epithelial Cells Few /hpf (<5) Urine Bacteria Mod /hpf (None Seen) H Urine Glucose Normal mg/dL (Normal) Labs and/or images reviewed: Labs reviewed by me, Image(s) reviewed by me Assessment/Plan Assessment/Plan 33-year-old female with past medical history of recurrent UTIs and vitamin D deficiency presenting with epigastric and right upper quadrant abdominal pain, worse after meals, that acutely intensified around 2 a.m. today. She reports associated nausea but denies vomiting, fevers, chills, diarrhea, chest pain, or urinary complaints. She states she has been experiencing similar intermittent episodes for a while. In the ED, vital signs were stable. Labs including CBC, CMP, lipase, test, urinalysis, and toxicology screen were normal. RUQ ultrasound showed cholelithiasis, a CBD measuring 7 mm, and hepatic steatosis. MRCP was ordered to further evaluate for possible obstruction or choledocholithiasis. She was started on IV fluids and pain control. No antibiotics were initiated as there is no evidence of infection. Findings and plan were discussed with the patient. 05/04: MRCP with no obstruction. CMP without any obstruction. Pain is improving . Pending surgery eval. 05/05 POD0. sp lap cholecystectomy for ssx cholelithiasis. will followup with labs. will likely need 1+ midnight stay to assess po tolerance and stability. Diagnosis: #symptomatic cholelithiasis s/p lap cholecystectomy 05/05/25 #Acute intractable abdominal pain due to above, resolving #Biliary colic , resolving. # Hepatic steatosis # Vitamin D deficiency plan: IV fluids, prn analgesia, surgery eval, Protonix 40 IV daily, Med surge Full code Plan discussed with: Patient My Orders Orders - BUSTER FLORES MD Procedure Category Date Status Time Pantoprazole PHA 05/05/25 In Process (Protonix) 10:00 Date of Service: May 05, 2025 Billing Provider: BUSTER FLORES MD Common Visit Codes: [id number] INP/OBS CARE(HIGH) BUSTER FLORES MD May 05, 2025 10:13
[2025-05-05] MEDS: POLYETHYLENE GLYCOL 17 GM PWDR PO SCH (14:39)
[2025-05-05] MEDS: HYDROcodone-ACET 5/325MG TAB PO PRN (22:12)
[2025-05-06 01:00] VITALS: BP 106/65; PULSE 73; RESP 16; TEMP 97.7; O2SAT 95
[2025-05-06 05:00] VITALS: BP 106/70; PULSE 86; RESP 16; TEMP 98.5; O2SAT 95
[2025-05-06 07:59] LABS: Albumin 3.9 g/dL (3.2-4.8); Alkaline Phosphatase 54 U/L (46-116); Anion Gap 9 (5-15); BUN/Creatinine Ratio 10.6 (10.0-20.0); Calcium 8.8 mg/dL (8.7-10.4); Carbon Dioxide 24 mmol/L (20-31); Chloride 105 mmol/L (98-107); Glucose 104 mg/dL (74-106); Potassium 4.2 mmol/L (3.5-5.1); Sodium 138 mmol/L (136-145); Total Protein 6.3 g/dL (5.7-8.2)
[2025-05-06 08:00] LABS: Bilirubin, Direct 0.1 mg/dL (<0.3); Bilirubin, Total 0.6 mg/dL (0.2-1.0)
[2025-05-06 08:07] LABS: Alanine Aminotransferase 43 U/L (7-40); Blood Urea Nitrogen 7 mg/dL (9-23)
[2025-05-06 08:39] VITALS: BP 107/66; PULSE 83; RESP 16; TEMP 99; O2SAT 98
[2025-05-06 09:03] LABS: Hemoglobin 11.4 g/dL (12.2-16.2); Nucleated Red Blood Cells % 0.1 %
[2025-05-06 09:05] LABS: Hematocrit 34.4 % (36.0-46.0); Mean Corpuscular Hemoglobin 26.3 pg (28.0-32.0); Mean Corpuscular Volume 79.2 fL (80.0-100.0)
--- NOTE | 2025-05-06 10:28 | DVHDS2 ---
Discharge Summary Date of Admission May 03, 2025 at 12:04 Date of Discharge: May 06, 2025 Labs/Diagnostic Data: Laboratory Results Test 05/06/25 08:30 05/06/25 04:03 05/04/25 06:10 05/03/25 06:03 White Blood Count 8.0 10^3/uL (4.4-10.8) Red Blood Count 4.34 10^6/uL (4.0-5.20) Hemoglobin 11.4 g/dL (12.2-16.2) Hematocrit 34.4 % (36.0-46.0) Mean Corpuscular Volume 79.2 fL (80.0-100.0) Mean Corpuscular Hemoglobin 26.3 pg (28.0-32.0) Mean Corpuscular Hemoglobin Concent 33.2 g/dL (32.0-36.0) Red Cell Distribution Width 13.9 % (11.8-14.3) Platelet Count 241 10^3/uL (140-450) Mean Platelet Volume 7.4 fL (6.9-10.8) Neutrophils (%) (Auto) 76.7 % (37.0-80.0) Lymphocytes (%) (Auto) 18.3 % (10.0-50.0) Monocytes (%) (Auto) 4.5 % (0.0-12.0) Eosinophils (%) (Auto) 0.2 % (0.0-7.0) Basophils (%) (Auto) 0.3 % (0.0-2.0) Neutrophils # (Auto) 6.1 10 ^3/uL (1.6-8.6) Lymphocytes # (Auto) 1.5 10 ^3/uL (0.4-5.4) Monocytes # (Auto) 0.4 10 ^3/uL (0-1.3) Eosinophils # (Auto) 0 10 ^3/uL (0-0.8) Basophils # (Auto) 0 10 ^3/uL (0-0.2) Nucleated Red Blood Cells 0.1 % Sodium Level 138 mmol/L (136-145) Potassium Level 4.2 mmol/L (3.5-5.1) Chloride Level 105 mmol/L (98-107) Carbon Dioxide Level 24 mmol/L (20-31) Anion Gap 9 (5-15) Blood Urea Nitrogen 7 mg/dL (9-23) Creatinine 0.66 mg/dL (0.550-1.02) Glomerular Filtration Rate Calc 119 mL/min (>90) BUN/Creatinine Ratio 10.6 (10.0-20.0) Serum Glucose 104 mg/dL (74-106) Calcium Level 8.8 mg/dL (8.7-10.4) Total Bilirubin 0.6 mg/dL (0.2-1.0) Direct Bilirubin 0.1 mg/dL (<0.3) Aspartate Amino Transferase (AST) 41 U/L (13-40) Alanine Aminotransferase (ALT) 43 U/L (7-40) Alkaline Phosphatase 54 U/L (46-116) Total Protein 6.3 g/dL (5.7-8.2) Albumin 3.9 g/dL (3.2-4.8) Prothrombin Time 11.1 sec (9.3-11.8) Prothrombin Time INR 1.05 (0.9-1.15) Activated Partial Thromboplast Time 26.2 SEC (24.5-34.5) Lipase 39 U/L (12-53) Vitamin B12 Level 598 pg/mL (211-911) Vitamin D 25-Hydroxy 29.7 ng/mL (30.0-100) Thyroid Stimulating Hormone (TSH) 0.37 uIU/mL (0.55-4.78) Urine Color Colorless (Yellow) Urine Clarity Clear (Clear) Urine pH 5.5 (5.0-9.0) Urine Specific [place] 1.009 (1.001-1.035) Urine Protein Negative (Negative) Urine Ketones Negative (Negative) Urine Blood Negative /uL (Negative) Urine Nitrite Negative (Negative) Urine Bilirubin Negative (Negative) Urine Urobilinogen Normal mg/dL (Negative) Urine Leukocyte Esterase Negative /uL (Negative) Urine RBC 1 /hpf (0 - 4) Urine Microscopic WBC 1 /HPF (0-5) Urine Squamous Epithelial Cells Few /hpf (<5) Urine Bacteria Mod /hpf (None Seen) Urine Glucose Normal mg/dL (Normal) Urine Opiates Screen Neg (NEGATIVE) Urine Fentanyl Screen Neg (NEGATIVE) Urine Barbiturates Screen Neg (NEGATIVE) Urine Phencyclidine Screen Neg (NEGATIVE) Urine Amphetamines Screen Neg (NEGATIVE) Urine Benzodiazepines Screen Neg (NEGATIVE) Urine Cocaine Screen Neg (NEGATIVE) Urine Cannabinoids Screen Neg (NEGATIVE) Test 05/03/25 05:39 05/03/25 05:35 Beta HCG, Quantitative 0.9 mIU/mL (1.5-4.2) Hemoglobin A1c 5.5 % A1C (<5.7) Other Laboratory Tests 05/06/25 08:30 05/06/25 04:03 Brief Hx & Hospital Course: 33-year-old female with past medical history of recurrent UTIs and vitamin D deficiency presenting with epigastric and right upper quadrant abdominal pain, worse after meals, that acutely intensified around 2 a.m. today. She reports associated nausea but denies vomiting, fevers, chills, diarrhea, chest pain, or urinary complaints. She states she has been experiencing similar intermittent episodes for a while. In the ED, vital signs were stable. Labs including CBC, CMP, lipase, test, urinalysis, and toxicology screen were normal. RUQ ultrasound showed cholelithiasis, a CBD measuring 7 mm, and hepatic steatosis. MRCP was ordered to further evaluate for possible obstruction or choledocholithiasis. She was started on IV fluids and pain control. No antibiotics were initiated as there is no evidence of infection. Findings and plan were discussed with the patient. 05/04: MRCP with no obstruction. CMP without any obstruction. Pain is improving . Pending surgery eval. 05/05 POD0. sp lap cholecystectomy for ssx cholelithiasis. will followup with labs. will likely need 1+ midnight stay to assess po tolerance and stability. 05/06 doing well. no nausea. tolerating po. BS hyypoactive. passing some gas. will try proceed with discharge today as plan below. VS stable. Diagnosis: #symptomatic cholelithiasis s/p lap cholecystectomy 05/05/25 #Acute intractable abdominal pain due to above, resolving #Biliary colic , resolving. # Hepatic steatosis # Vitamin D deficiency Plan: - augmentin 875mg x2/day for 4 days. - for pain 1st line OTC tylenol, 2nd line OTC ibuprofen, 3rd line as needed norco 10mg upto 3x/day - for nausea. as needed zofran ODT tablets. upto 3x/day. - low fat diet 1 week. - any sudden onset/worsening pain, excessive abdomen distension/bloating, not passing gas/BM: return to nearest ER, -otherwise continue abdominal binder, keep surgical sites dry, 1 week followup with surgery - followup with PCP to review discharge. continue other home medications. Condition at Discharge: Fair Final Diagnosis/Problems List #symptomatic cholelithiasis s/p lap cholecystectomy 05/05/25 #Acute intractable abdominal pain due to above, resolving #Biliary colic , resolving. # Hepatic steatosis # Vitamin D deficiency Discharge Disposition: Home Discharge Instruct/Medications Scheduled Ibuprofen (Ibuprofen), 1 TAB PO TID Lidocaine (Lidoderm 5% Topical Patch), 1 PATCH TOP DAILY Nitrofurantoin Monohydrate Mac (Macrobid), 100 MG PO BID Scheduled PRN Methocarbamol (Methocarbamol), 500 MG PO Q8HP PRN Discharge Statement: "Patient was advised to return to the ER or call 911 if any headaches, dizziness, shortness of breath, chest pain, abdominal pain, bleeding, fevers, or worsening of medical condition. Patient was counseled about treatment plan, medications, possible side effects, patientverbalized understanding. All questions were answered to the best of my ability. This discharge took greater then 30 minutes in planning, reviewing documentation, counseling the patient, and discussing with other team members." ASSESSMENT ASSESSMENT Assessment Same Date of Service: May 06, 2025 Billing Provider: BUSTER FLORES MD Common Visit Codes: [id number] DISCH DAY >30min BUSTER FLORES MD May 06, 2025 10:27
[2025-05-06] MEDS ORDERED: AUG875T PO (10:30)
[2025-05-06] MEDS ORDERED: ZOFR4T PO (10:30)
[2025-05-06] MEDS ORDERED: HYDR-4902 PO (10:30)
[2025-05-06 12:09] VITALS: TEMP 37.2
--- NOTE | 2025-05-06 12:12 | DVHPN2 ---
Progress Note - Surgical Date Seen: May 06, 2025 Post op day Post op day: 1 Subjective Patient reports: Feels better (Patient feeling good, no abdominal pain complaints, tolerating diet, afebrile with vital stable.) Review of Systems: Deferred Objective Vital signs Vital Sign Date Time Temp Pulse Resp B/P (MAP) Pulse Ox O2 Delivery O2 Flow Rate FiO2 05/06/25 08:39 99.0 83 16 107/66 (80) 98 99.0 05/06/25 08:12 Room Air* 0 21 Total Intake and Output 05/05/25 05/05/25 05/06/25 15:00 23:00 07:00 Intake Total 480 ml 696 ml Balance 480 ml 696 ml Medications Current Medications Medications Dose Ordered Sig/Vimal Route Start Time Stop Time Status Last Admin Dose Admin Sodium Chloride 1,000 ml @ 60 mls/hr [id number] IV 05/03/25 12:15 05/05/25 14:29 60 MLS/HR Acetaminophen/ Hydrocodone Bitart 1 tab Q4HP PRN PO 05/03/25 12:15 05/05/25 22:12 1 TAB Morphine Sulfate 2 mg Q4HPRN PRN IV 05/03/25 12:15 Pantoprazole Sodium 40 mg DAILY IV 05/05/25 10:00 05/06/25 09:21 40 MG Acetaminophen 650 mg Q6HR PO 05/05/25 09:15 05/06/25 11:15 650 MG Acetaminophen/ Hydrocodone Bitart 1 tab Q4HP PRN PO 05/05/25 09:15 Polyethylene Glycol 17 gm DAILY PO 05/05/25 10:00 05/06/25 09:24 17 GM Oxycodone HCl 10 mg ONCE PRN PO 05/05/25 09:15 05/05/25 09:53 10 MG Laboratory Laboratory Tests 05/06/25 08:30 05/06/25 04:03 Test 05/06/25 04:03 Range/Units Serum Glucose 104 74-106 mg/dL Examination: GENERAL:Normal (AAO x3), HEENT:Normal (No icterus, neck supple), LUNGS:Normal (Nonlabored breathing with symmetric expansion), ABDOMEN:Normal (Nondistended, soft, depressible, nontender, incision sites with overlying skin glue), SKIN:Normal (No jaundice) Labs and/or images reviewed: Labs reviewed by me (No leukocytosis, LFTs within normal limits) Problem List/Assessment/Plan Assessment and Plan Mrs. Waggoner is a 34-year-old female who was postop day 1 from laparoscopic cholecystectomy due to symptomatic cholelithiasis. Patient is doing well, tolerating diet, ambulating, pain well controlled, LFTs within normal limits. Patient is cleared for discharge. 1. Cleared for discharge per surgical standpoint 2. Low-fat diet 3. No lifting over 10 lb for 6 weeks 4. May shower, soap and water okay to run over incision sites. No swimming and bathing for 2 weeks. 5. Tylenol and/or ibuprofen for baseline pain control, please follow automotive drivability technician's directions. For best results alternate the medications. 6. Recommend [place] 5-325 mg 1 tab p.o. PRN severe pain 7. Recommend MiraLax 1 packet daily p.o. PRN constipation 8. No driving while taking narcotics 9. Follow up with Dr. Mckinney at [facility] in 2-4 weeks. Please call for appointment. Plan discussed with Plan discussed with: Patient Visit Coding Surgery Date of Service if different f: May 06, 2025 Billing Provider: EULALIO SIBLEY MD Surgery Visit Codes: [id number] INP/OBS CARE(HIGH) EULALIO SIBLEY MD May 06, 2025 12:12
[2025-05-06 13:00] VITALS: BP 110/67; PULSE 74; RESP 16; TEMP 98.7; O2SAT 97
== END 2025-05-06 13:00 | disposition home or self-care (01) | DRG 263 ==
LOC: ER 04:28 → OVERFLOW 12:04 → WEST WING 21:48
PROVIDERS: ADMIT Student in an Organized Health Care Education/Training Program; ATTEND Student in an Organized Health Care Education/Training Program
PROC: 0FT44ZZ Resection of Gallbladder, Percutaneous Endoscopic Approach (ICD-10-PCS; principal; 2025-05-05 07:44)
DX: K80.64 Calculus of gallbladder and bile duct with chronic cholecystitis without obstruction (principal); R71.0 Precipitous drop in hematocrit; K76.0 Fatty (change of) liver, not elsewhere classified; E55.9 Vitamin D deficiency, unspecified; Z98.891 History of uterine scar from previous surgery; Z90.49 Acquired absence of other specified parts of digestive tract; Z87.440 Personal history of urinary (tract) infections
CPT/HCPCS: 36415; 74181; 76705; 80048; 80053; 80076; 80307; 81001; 82248; 82306; 82607; 83036; 83690; 84443; 84702; 85025; 85610; 85730; 86850; 86870; 86880; 86900; 86901; 86905; 86906; 86971; G0378; J0131; J0694; J1100; J1885; J2003; J2405; J2470; J2704; J3490